=== PATIENT | male | born 1980 | race Caucasian/White ===

== ENCOUNTER 2020-11-25 21:06 | Emergency (ER) | payer MEDICAID, SELFPAY ==
--- NOTE | ~2020-11-25 | XR_ITS ---
EXAMINATION: XR CHEST CLINICAL INFORMATION: Hypoxia COMPARISON: None TECHNIQUE: Frontal view of the chest was obtained. FINDINGS: The heart and pulmonary vessels appear normal. There is an area of dense consolidation present in the right upper lobe abutting the minor fissure. The lungs are otherwise clear. No effusions are seen. XR/XR chest 1V IMPRESSION: Single focal right upper lobe dense consolidation consistent with pneumonia.
[2020-11-25 21:58] VITALS: BP 99/79; PULSE 92; RESP 17; TEMP 36.7; O2SAT 96; BMI 26.4
--- NOTE | 2020-11-25 22:14 | ED.NAVMDI ---
HPI - Nausea/Vomiting/Diarrhea General Chief complaint: Nausea/Vomiting/Diarrhea Stated complaint: Bodyaches/Sore throat Time Seen by Provider: 11/25/20 22:14 Source: patient Mode of arrival: ambulatory Limitations: no limitations History of Present Illness HPI Narrative: Headache, nausea, vomiting, diarrhea for 3 days MD elicited complaint: nausea and vomiting Onset (ago): day(s) (3) Severity: mild Associated symptoms: myalgias, cough, headaches and nausea/vomiting Related Data Previous Rx's Medication Instructions Recorded levofloxacin 500 mg PO DAILY #7 tab 11/26/20 Allergies Allergy/AdvReac Type Severity Reaction Status Date / Time No Known Allergies Allergy Verified 11/25/20 22:04 [No Known Allergies*] Review of Systems Constitutional: Constitutional: Reports no additional constitutional complaints Eyes: Eyes: Reports no additional eye complaints ENT: Denies dizziness Cardiovascular: Cardiovascular: Reports no additional cardiovascular complaints Respiratory: Respiratory: Reports as per HPI Gastrointestinal: Gastrointestinal: Reports no additional gastrointestinal complaints Musculoskeletal: Musculoskeletal: Reports no additional musculoskeletal complaints Integumentary/Breasts: Skin/Breast: Denies rash Neurologic: Reports system reviewed and no additional complaints, except as documented, Denies dizziness and Denies Sensory deficit (Neuro) Psychiatric: Psychiatric: Denies anxiety PMFSH Past Medical History Medical History Anxiety Circulation problem HTN (hypertension) Social History Social History Advance Directives: No Advance Directives Information Provided: No Physical Exam Vital Signs: Vital Signs: Last Vital Signs Temp 98.1 F 11/25/20 21:58 Pulse 92 11/25/20 21:58 Resp 17 11/25/20 21:58 BP 99/79 11/25/20 21:58 Pulse Ox 96 11/25/20 21:58 Body Mass Index 26.4 Const: General: healthy appearing Nutritional Appearance: average body habitus Orientation/consciousness: oriented to person and patient oriented x3 Limitations: no limitations HENMT: Head: Yes normal to inspection Ears: external ears normal General nose exam: Normal external nose present Mouth: Normal oral and palatal mucosa present and oropharynx normal Throat: Yes posterior oropharynx normal Eyes: General: appearance normal, both eyes and all related structures Neck: Other: supple Neck: Yes normal visual inspection Chest: Chest palpation & inspection: normal inspection of the chest Resp: Auscultation: clear to auscultation bilaterally Cardio: Jugular venous distension: no JVD Rate: regular rate Rhythm: regular rhythm Heart sounds: S1 normal heart sound present and S2 normal heart sound present GI: Inspection: Yes normal to inspection Palpation (GI): Soft to palpation, nontender and No hepatosplenomegaly present Auscultation: normal bowel sounds : General: Yes no CVA tenderness Back/Spine/Pelvis: Back: no CVA tenderness Skin: General skin exam: no rashes or lesions noted Neuro: General: oriented to person and patient oriented x3 Cranial nerves: Yes CN's II-XII intact bilaterally Motor exam (neuro): 5/5 motor strength present throughout Sensory Exam: No Sensory deficit (Neuro) Extrem: General: Yes normal to inspection Psych: Appearance: grossly normal MDM - Nausea/Vomiting/Diarrhea MDM Narrative Medical decision making narrative: Covid and pneumonia were considered, xray consistent with right upper lobe infiltrate Lab Data Labs: Lab Results 11/25/20 Range/Units 22:48 Coronavirus (PCR) NEGATIVE (Negative) Influenza Type A (PCR) NEGATIVE (Negative) Influenza Type B (PCR) NEGATIVE (Negative) RSV RNA Qual (PCR) NEGATIVE (Negative) Imaging Data Chest x-ray: Radiologist's impression: right upper lobe infiltrate Discharge Plan Discharge Clinical Impression: Pneumonia Qualifiers: Pneumonia type: due to unspecified organism Laterality: right Lung location: upper lobe of lung Qualified Code(s): J18.9 - Pneumonia, unspecified organism Patient Disposition: Home, Self-Care Instructions: Pneumonia (ED) Prescriptions: New levofloxacin 500 mg tablet 500 mg PO DAILY Qty: 7 RF: 0 Referrals: Physician,Unknown [Primary Care Provider] - 2 days
--- NOTE | 2020-11-25 23:00 | PC.NURSE ---
Pt declined zofran- denies nausea. Pt in deep sleep prior to rn awakening pt w/ light sternal rub.
[2020-11-25 23:39] LABS: Influenza A PCR NEGATIVE (Negative); Influenza B PCR NEGATIVE (Negative); Resp Syncy Virus RNA Qual PCR NEGATIVE (Negative); SARS COV2 PCR INHOUSE NEGATIVE (Negative)
[2020-11-26 02:00] VITALS: BP 123/76; PULSE 101; RESP 18; TEMP 37.1; O2SAT 95
[2020-11-26] MEDS: levoFLOXacin 500 MG TABLET PO (02:04)
== END 2020-11-26 02:14 | disposition home or self-care (01) ==
PROVIDERS: Emergency Provider Emergency Medicine
DX: J18.9 Pneumonia, unspecified organism (principal); M79.10 Myalgia, unspecified site; Z20.822 Contact with and (suspected) exposure to COVID-19; Z79.899 Other long term (current) drug therapy
CPT/HCPCS: 0241U; 36415; 71045; 99283; 99284

== ENCOUNTER 2020-12-27 14:27 | Emergency (ER) | payer MEDICAID, SELFPAY ==
[2020-12-27 14:41] VITALS: BP 148/95; PULSE 103; RESP 18; O2SAT 97; BMI 31.4
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
[2020-12-27] MEDS: Bacitracin Oint 14 GM TUBE 1 APPL TOPICAL (17:06)
== END 2020-12-27 17:12 | disposition home or self-care (01) ==
PROVIDERS: Emergency Provider Emergency Medicine Emergency Medical Services
DX: T23.261A Burn of second degree of back of right hand, initial encounter (principal); T31.0 Burns involving less than 10% of body surface; X13.1XXA Other contact with steam and other hot vapors, initial encounter; Y93.G3 Activity, cooking and baking; Y92.511 Restaurant or cafe as the place of occurrence of the external cause; Y99.0 Civilian activity done for income or pay
CPT/HCPCS: 16020; 99283; 99284

== ENCOUNTER 2023-04-17 21:15 | Emergency (ER) | payer MEDICAID, SELFPAY ==
[2023-04-17 21:32] VITALS: BP 141/93; BP 162/90; PULSE 110; PULSE 114; RESP 18; TEMP 36.1; O2SAT 96; BMI 35.3
--- NOTE | 2023-04-17 22:29 | ED.GENADULT ---
HPI - General Adult General Chief complaint: ETOH/Substance Use Stated complaint: etoh Time Seen by Provider: 04/17/23 22:19 Source: patient, RN notes reviewed and old records reviewed Mode of arrival: EMS Limitations: other (Acute alcohol intoxication) History of Present Illness HPI narrative: 42-year-old male presents for evaluation of ?I was just sleeping on the bench. ? Patient [place]. He admits to drinking alcohol in excess today He denies any complaints or concerns He states that he would like to be discharged Denies any depression or suicidal ideation Related Data Previous Rx's Medication Instructions Recorded levofloxacin 500 mg tablet 500 mg PO DAILY #7 tabs 11/26/20 bacitracin 500 unit/gram topical 1 appl topical BID 2 weeks #28.4 12/27/20 ointment grams Allergies Allergy/AdvReac Type Severity Reaction Status Date / Time No Known Allergies Allergy Verified 11/25/20 22:04 [No Known Allergies*] Review of Systems Constitutional: Constitutional: Reports as per HPI, Denies chills, Denies fatigue, Denies fever(s) and Denies headache(s) ENT: Denies headache(s) Cardiovascular: Cardiovascular: Denies chest pain and Denies dyspnea Respiratory: Respiratory: Denies cough and Denies dyspnea Gastrointestinal: Gastrointestinal: Denies abdominal pain, Denies constipation and Denies vomiting Genitourinary: Genitourinary: Denies difficulty urinating and Denies dysuria Neurologic: Denies headache(s) Endocrine: Endocrine: Denies fatigue PMFSH Past Medical History Medical History Anxiety Circulation problem HTN (hypertension) Social History Social History Advance Directives: No Advance Directives Information Provided: No Physical Exam ED Vital Signs: Vital Signs - 24 hr 04/17/23 21:32 Temperature 97 F Pulse Rate 114 H Respiratory Rate 18 Blood Pressure 141/93 H Pulse Oximetry 96 Oxygen Delivery Method Room Air BMI result Body Mass Index 35.3 Const General: healthy appearing, comfortable, no acute distress, alert and awake Nutritional Appearance: well nourished Orientation/consciousness: patient oriented x3 HENMT Head: Yes normocephalic and Yes atraumatic Eyes Eyelids: Yes eyelids normal Conjunctivae: conjunctivae normal Sclerae: sclerae normal Corneas: corneas normal Pupils: Equal, round and reactive pupils present EOM: EOMs intact bilaterally Neck Neck: Yes full ROM Resp Effort & Inspection: normal respiratory effort, able to speak in complete sentences and not labored Cardio Rate: regular rate Rhythm: regular rhythm Skin General skin exam: no rashes or lesions noted and elasticity normal Neuro General: patient oriented x3 Cranial nerves: Yes Equal, round and reactive pupils present and Yes Bilaterally intact EOM present Cognition (Neuro): normal cognition Extrem Other: Moving all extremities well without any obvious deformities Medical Decision Making Medical Decision Making MDM Narrative: Patient mid to drinking alcohol today, however he is ambulating with a steady gait, he is speaking with clear sensorium. He has no complaints. He is slightly tachycardic which is likely related to his alcohol abuse and mildly hypertensive at 141/93. However I do not see any indication for emergent workup. The patient appears well has no signs of trauma and has no complaints. He will be discharged per his request. The patient was offered detox resources but he declines Differential Diagnosis Differential Diagnoses: The differential diagnosis associated with the presentation includes Acute alcohol abuse Acute alcohol intoxication Substance abuse Alcohol withdrawal Discharge Plan Discharge Clinical Impression: Alcoholic intoxication Patient Disposition: Home, Self-Care Instructions: Abuse of Alcohol (ED) Additional Instructions: Avoid excessive consumption of alcohol Prescriptions: No Action bacitracin 500 unit/gram ointment 1 appl topical BID 14 Days Qty: 28.4 0RF Rx Instructions: Worker's compensation injury, secondary burn to right hand levofloxacin 500 mg tablet 500 mg PO DAILY Qty: 7 0RF
== END 2023-04-17 22:33 | disposition home or self-care (01) ==
PROVIDERS: Emergency Provider Internal Medicine
DX: F10.220 Alcohol dependence with intoxication, uncomplicated (principal); Y90.9 Presence of alcohol in blood, level not specified; R00.0 Tachycardia, unspecified; I10 Essential (primary) hypertension; F41.9 Anxiety disorder, unspecified; Z79.899 Other long term (current) drug therapy
CPT/HCPCS: 99282

== ENCOUNTER 2023-08-10 12:21 | Outpatient (REF) | payer MEDICAID, SELFPAY ==
[2023-08-10 13:48] LABS: Anion Gap 14 (12-20); Blood Urea Nitrogen 14 mg/dL (9-16); Calcium 9.6 mg/dL (8.4-10.2); Carbon Dioxide 27 mmol/L (22-29); Chloride 99 mmol/L (96-108); Estimated Glomerular Filt Rate > 60; Glucose Random 118 mg/dL (60-115); Potassium 3.4 mmol/L (3.3-5.1); Sodium 137 mmol/L (135-145)
[2023-08-10 14:27] LABS: Folate 9.8 ng/mL (> or = 4.0); Vitamin B12 734 pg/mL (200-900)
[2023-08-14 17:27] LABS: Homocysteine 14.1 umol/L (<11.4)
[2023-08-14 19:44] LABS: Methylmalonic Acid 142 nmol/L (87-318)
== END 2023-08-10 12:22 | disposition home or self-care (01) ==
LOC: HO.LAB 12:21
PROVIDERS: PCP Internal Medicine; Visit Provider Internal Medicine
DX: R25.2 Cramp and spasm (principal)
CPT/HCPCS: 36415; 80048; 82607; 82746; 83090; 83921